=== PATIENT | female | born 1975 | race Caucasian/White ===

== ENCOUNTER 2019-11-08 23:02 | Emergency (ER) | payer SELFPAY ==
[~2019-11-08] VITALS: Ht 162.6 cm; Wt 81.6 kg
[2019-11-08 23:13] VITALS: BP 180/106
[2019-11-08] MEDS ORDERED: NACL 0.9% 1,000 ML IV ONE (23:20)
[2019-11-08 23:28] LABS: BASOPHILS # (AUTO) 0.1 K/uL (0.00-0.22); BASOPHILS % (AUTO) 0.4 % (0.0-2.0); EOSINOPHILS % (AUTO) 0.2 % (0.0-4.0); HEMATOCRIT 37.7 % (36-48); HEMOGLOBIN 12.4 g/dL (12.0-16.0); LYMPHOCYTES # (AUTO) 1.7 K/uL (2.5-16.5); MEAN CORPUSCULAR HEMOGLOBIN 28 pg (27-31); MEAN CORPUSCULAR HGB CONC 33 g/dL (33-37); MEAN CORPUSCULAR VOLUME 84.6 fL (80-94); MONOCYTES # (AUTO) 1.7 K/uL (0.8-1.0); MONOCYTES % (AUTO) 8.3 % (1.7-9.3); NEUTROPHILS # (AUTO) 16.6 K/uL (1.8-7.7); NEUTROPHILS % (AUTO) 82.8 % (42.2-75.2); RED BLOOD CELL COUNT(AUTO) 4.46 MIL/uL (4.20-5.40); RED CELL DISTRIBUTION WIDTH 14.2 % (11.6-13.7)
[2019-11-08 23:43] LABS: WHITE BLOOD COUNT (AUTO) 20.1 K/uL (4.8-10.8)
[2019-11-08 23:44] LABS: LYMPHOCYTES % (AUTO) 8.3 % (20.5-51.1); PLATELET COUNT (AUTO) 671 K/uL (140-450)
[2019-11-08 23:49] LABS: ALBUMIN 1.1 g/dL (3.4-5.0); ANION GAP 19.6 (8-16); ASPARTATE AMINOTRANSFERASE 13 U/L (15-37); CARBON DIOXIDE 19.3 mmol/L (21-32); CHLORIDE 98 mmol/L (98-107); CREATININE 1.9 mg/dL (0.6-1.3); GFR ARICAN-AMERICAN 37 mL/min (>90); GLUCOSE 382 mg/dL (74-106); SODIUM SERUM 134 mmol/L (136-145); TOTAL BILIRUBIN 0.3 mg/dL (0.0-1.0); UREA NITROGEN, BLOOD 22 mg/dL (7-18)
[2019-11-08 23:59] LABS: POTASSIUM 2.9 mmol/L (3.5-5.1)
[2019-11-09 00:25] LABS: APPEARANCE,URINE CLOUDY (CLEAR); BILIRUBIN,URINE NEGATIVE (NEGATIVE); BLOOD, URINE 3+ (NEGATIVE); COLOR,URINE YELLOW (YELLOW); LEUKOCYTE ESTERASE ,URINE NEGATIVE (NEGATIVE); NITRITE, URINE NEGATIVE (NEGATIVE); UGLUCOSE 3+ (NEGATIVE)
[2019-11-09] MEDS ORDERED: LORazepam 2 MG/ML VIAL IVP ONE (00:25)
[2019-11-09] MEDS ORDERED: LORazepam 2 MG/ML VIAL ONE (00:26)
[2019-11-09 00:48] LABS: RBC,URINE TOO NUMEROUS TO COUN /HPF (0-5); WBC,URINE TOO MANY TO COUNT /HPF (0-5)
[2019-11-09 00:49] LABS: BARBITURATE, URINE NEGATIVE ng/ml (NEG <=200); BENZODIAZEPINE, URINE NEGATIVE ng/mL (NEG <=200); CANNABINOID, URINE NEGATIVE ng/mL (NEG <=50); COCAINE, URINE NEGATIVE ng/mL (NEG <=300)
[2019-11-09 00:50] LABS: OPIATE, URINE POSITIVE ng/mL (NEG <=2000); PHENCYCLIDINE SCREEN,URINE NEGATIVE ng/mL (NEG <=25)
[2019-11-09] MEDS ORDERED: cefTRIAXone 1,000 MG VIAL ONE (01:08)
[2019-11-09 02:18] VITALS: BP 152/85
== END 2019-11-09 03:29 | disposition home or self-care (01) ==
LOC: MED 23:02
DX: N39.0 Urinary tract infection, site not specified (principal); R46.1 Bizarre personal appearance; R41.82 Altered mental status, unspecified; M54.30 Sciatica, unspecified side; Z79.899 Other long term (current) drug therapy
CPT/HCPCS: 36415; 70450; 71045; 74176; 80053; 80305; 81001; 84484; 84702; 85025; 87086; 96361; 96365; 96375; 99285; G0482; J0696; J2060; J7030; Q0092

== ENCOUNTER 2019-11-20 21:46 | Inpatient (IN) | payer BC, SELFPAY ==
[~2019-11-20] VITALS: Ht 162.6 cm; Wt 98.4 kg
[2019-11-20 22:25] VITALS: BP 64/48
--- NOTE | 2019-11-20 22:28 | NUR ---
PT TAKEN TO BED 7
--- NOTE | 2019-11-20 22:30 | NUR ---
Dr. Fonseca examining patient.
[2019-11-20] MEDS ORDERED: NACL 0.9% 1,000 ML IV ONE (22:35)
--- NOTE | 2019-11-20 22:45 | NUR ---
PT BIB FAMILY C/O YEAST INFECTION, STATING "ITS STILL THERE". PT IS LETHARGIC AND WEAK, TACHYPNIEC, SKIN MOIST, CLAMY, BP 74/59. PT SKEAKING IN ONE WORD SENTENCES. PT SEEN HERE 2 W[address]KS AGO FOR UTI [address] OLIVEIRA AT BEDSIDE
--- NOTE | 2019-11-20 22:52 | NUR ---
XRAY AT BEDSIDE.
[2019-11-20 22:59] LABS: BASOPHILS # (AUTO) 0.1 K/uL (0.00-0.22); BASOPHILS % (AUTO) 0.8 % (0.0-2.0); EOSINOPHILS # (AUTO) 0.1 K/uL (0-0.4); HEMATOCRIT 35.3 % (36-48); HEMOGLOBIN 11.6 g/dL (12.0-16.0); LYMPHOCYTES # (AUTO) 1.8 K/uL (2.5-16.5); LYMPHOCYTES % (AUTO) 11.7 % (20.5-51.1); MEAN CORPUSCULAR HEMOGLOBIN 27 pg (27-31); MEAN CORPUSCULAR HGB CONC 33 g/dL (33-37); MEAN CORPUSCULAR VOLUME 82.8 fL (80-94); MONOCYTES # (AUTO) 1.1 K/uL (0.8-1.0); MONOCYTES % (AUTO) 7.1 % (1.7-9.3); NEUTROPHILS # (AUTO) 12.2 K/uL (1.8-7.7); NEUTROPHILS % (AUTO) 79.4 % (42.2-75.2); PLATELET COUNT (AUTO) 689 K/uL (140-450); RED BLOOD CELL COUNT(AUTO) 4.26 MIL/uL (4.20-5.40); RED CELL DISTRIBUTION WIDTH 13.7 % (11.6-13.7)
--- NOTE | 2019-11-20 23:08 | NUR ---
LAB AT BEDSIDE.
[2019-11-20 23:16] LABS: APPEARANCE,URINE SL CLOUDY (CLEAR); BILIRUBIN,URINE NEGATIVE (NEGATIVE); BLOOD, URINE 1+ (NEGATIVE); COLOR,URINE YELLOW (YELLOW); LEUKOCYTE ESTERASE ,URINE NEGATIVE (NEGATIVE); NITRITE, URINE NEGATIVE (NEGATIVE); PH,URINE 7.5 (5.0-9.0); UGLUCOSE 3+ (NEGATIVE)
--- NOTE | 2019-11-20 23:16 | NUR ---
Dr. Carl examining patient.
--- NOTE | 2019-11-20 23:18 | NUR ---
DR ROBERTS AT BEDSIDE
[2019-11-20 23:21] LABS: SALICYLATE 3.3 mg/dL (2.8-20.0)
[2019-11-20 23:22] LABS: ANION GAP 17.8 (8-16); CREATININE 1.5 mg/dL (0.6-1.3); TOTAL BILIRUBIN 0.3 mg/dL (0.0-1.0)
[2019-11-20] MEDS ORDERED: KETOROLAC 30 MG/ML VIAL IVP ONE (23:30)
[2019-11-20 23:39] LABS: ACETAMINOPHEN < 0.5 ug/ml (10-30)
[2019-11-21 00:10] LABS: WHITE BLOOD COUNT (AUTO) 15.4 K/uL (4.8-10.8)
[2019-11-21 00:22] LABS: POTASSIUM 2.8 mmol/L (3.5-5.1)
[2019-11-21] MEDS ORDERED: KCL 20 MEQ/WATER INJ PREMIX 200 ML IV ONE (00:25)
[2019-11-21] MEDS ORDERED: NACL 0.9% 2,000 ML IV ONE (00:25)
[2019-11-21 01:11] LABS: RBC,URINE 0-5 /HPF (0-5); WBC,URINE 0-5 /HPF (0-5)
[2019-11-21 01:13] LABS: BARBITURATE, URINE NEGATIVE ng/ml (NEG <=200); BENZODIAZEPINE, URINE NEGATIVE ng/mL (NEG <=200); CANNABINOID, URINE NEGATIVE ng/mL (NEG <=50); COCAINE, URINE NEGATIVE ng/mL (NEG <=300); OPIATE, URINE NEGATIVE ng/mL (NEG <=2000); PHENCYCLIDINE SCREEN,URINE NEGATIVE ng/mL (NEG <=25)
[2019-11-21] MEDS ORDERED: cefTRIAXone 1,000 MG VIAL ONE (01:22)
--- NOTE | 2019-11-21 01:28 | NUR ---
PT RESTING IN BED AROUSABLE TO VOICE, AAOX4. PT STATES SHE FEELS BETTER, PT NOW SPEAKING IN FULL COMPLETE SENTENCES. PT REPORTS PAIN IN LT HIP AT 4/10. PT TOLERATING POTASSIUM, NS BOLUS, AND ROCEPHIN WELL AT THIS TIME.
--- NOTE | 2019-11-21 02:00 | NUR ---
PT NOT TOLERATING POTASSIUM WELL, C/O BURNING PAIN AROUND IV SITE. NO SIGNS OF INFILTRATION, IV IS PATENT, GOOD BLOOD RETURN, NO SWELLING OR DISCOLORATION TO IV SITE. POTASSIUM SLOWED DOWN TO 2OML/HR
--- NOTE | 2019-11-21 02:14 | NUR ---
providing relief and cover for primary MARY Howard.assumed pt care at this time.
[2019-11-21 02:22] LABS: D-DIMER 2470 ng/ml (0-400)
[2019-11-21 02:36] LABS: FIBRINOGEN 875 mg/dL (200-400)
[2019-11-21] MEDS ORDERED: MORPHINE SULFATE 2 MG/ML SYR IVP ONE (02:55)
--- NOTE | 2019-11-21 05:00 | NUR ---
PT SLEEPING IN BED, VISIBLE SYMMETRICAL RISE AND FALL OF CHEST, NO DISTRESS NOTED AT THIS TIME, VSS.
--- NOTE | 2019-11-21 07:00 | NUR ---
RECEIVED REPORT FROM ER NURSE. ADMITTED 44 Y/O FEMALE FROM HOME. WITH CHIEF COMPLAINT OF GENERALIZED WEAKNESS AND ADMITTING DIAGNOSIS OF SEPSIS, HYPOTENSION AND GENERALIZED WEAKNESS. A0X4, NO C/O PAIN, ABLE TO MAKE NEEDS KNOWN, NO SOB, O2SAT 98% ON RA. WITH RAC 18G RUNNING NS AT 100CC/HR AND LEFT HAND 18G ON SL. SKIN IS INTACT. ISOLATION PRECAUTION OBSERVED, SAFETY PRECAUTIONS IN PLACE. CALL LIGHT WITHIN REACH. WILL CONTINUE TO MONITOR
--- NOTE | 2019-11-21 07:00 | NUR ---
Patient will be admitted to care of [facility]. Admited to tele. Will go to room 113. Belongings list completed. Report to Kentrell HERNANDEZ.
[2019-11-21] MEDS: NACL 0.9% 1,000 ML IV SCH ×2 (07:09→17:09)
[2019-11-21] MEDS ORDERED: guaiFENesin DM 200/20 MG-10 ML 10 ML UDC PO PRN (07:10)
[2019-11-21] MEDS ORDERED: ONDANSETRON 4 MG/2 ML VIAL IM/IVP PRN (07:10)
[2019-11-21] MEDS ORDERED: DOCUSATE SODIUM 100 MG GELCAP PO PRN (07:10)
[2019-11-21] MEDS ORDERED: NACL 0.9% 1,500 ML IV SCH (07:10)
[2019-11-21] MEDS ORDERED: ZOLPIDEM 5 MG TAB PO PRN (07:10)
[2019-11-21] MEDS ORDERED: POTASSIUM CHLORIDE 40 MEQ, LIDOCAINE MPF 1% 25 MG in NACL 0.9% 250 ML IV PRN (07:15)
[2019-11-21 07:58] LABS: CHOL/HDL RATIO 5.7 (1-4.5); FREE T4 (FREE THYROXINE) 1.36 ng/dL (0.76-1.46); MAGNESIUM 1.8 mg/dL (1.8-2.4); PHOSPHORUS 2.5 mg/dL (2.5-4.9); THYROID STIMULATING HORMONE 2.19 uIU/mL (0.34-3.74)
[2019-11-21 08:19] LABS: ANION GAP 27.6 (8-16); CARBON DIOXIDE 11.6 mmol/L (21-32); CREATININE 1.5 mg/dL (0.6-1.3); POTASSIUM 3.2 mmol/L (3.5-5.1)
[2019-11-21] MEDS: POTASSIUM CHLORIDE 10 MEQ TABER PO PRN (09:00)
[2019-11-21] MEDS: PANTOPRAZOLE 40 MG TABEC PO SCH (09:07)
--- NOTE | 2019-11-21 09:30 | NUR ---
DUE MORNING MEDS GIVEN
--- NOTE | 2019-11-21 09:45 | NUR ---
ASSISTED PT TO RESTROOM. GEN WEAKNESS NOTED. COMMODE PLACED AT BEDSIDE
[2019-11-21 10:05] VITALS: BP 145/72
--- NOTE | 2019-11-21 10:30 | NUR ---
WITH C/O LOWER BACK PAIN 10/11. NORCO GIVEN ORDERED
[2019-11-21] MEDS: HYDROcodone/APAP 7.5/325 MG 1 TAB PO PRN ×3 (10:35→20:18)
--- NOTE | 2019-11-21 11:06 | NUR ---
PATIENT HAS BEEN SCREENED AND CATEGORIZED HIGH NUTRITION RISK. PATIENT WILL BE SEEN WITHIN 1-2 DAYS OF ADMISSION. 11/21/19-11/22/[address]
--- NOTE | 2019-11-21 13:29 | NUR ---
PT RESTING IN BED, PAIN SCALE 2/10. NO SOB, AFEBRILE
--- NOTE | 2019-11-21 13:45 | NUR ---
DC PLANNIN YRS OLD FEMALE PATIENT WAS ADMITTED FROM HOME WITH A DX OF SEPSIS OF UNKNOWN ETIOLOGY, GENERALIZED WEAKNESS AND HYPOTENSION. PATIENT HAS A HX OF DIABETES. CXR SHOWED NO ACUTE CARDIOPULMONARY DISEASE. COVID TEST, BLOOD AND URINE CULTURE PENDING. STARTED IVF, IV ABX ROCEPHIN , CONTINUE HOME MEDS . ORDERED CT ANGIO CHEST PENDING RESULT. DC PLAN TO GO HOME WHEN STABLE CM TO FOLLOW Addendum: 11/22/19 at 1159 by Pebbles Hernandez DC PLANNING: COVID TEST NEGATIVE , VQ SCAN LIMITED PERFUSION ONLY STUDY DEMONSTRATES NO SEGMENTAL DEFECTS. CONTINUE IV ABX ROCEPHIN AND CURRENT THERAPY. DC PLAN TO GO HOME WHEN STABLE CM TO FOLLOW
--- NOTE | 2019-11-21 15:30 | NUR ---
WITH C/O LOWER BACK PAIN 10/11. NORCO GIVEN ORDERED. WILL REASSESS IN 1 HOUR
[2019-11-21 16:00] VITALS: BP 143/91
[2019-11-21] MEDS ORDERED: diphenhydrAMINE 50 MG/ML VIAL IVP ONE (16:25)
--- NOTE | 2019-11-21 18:23 | NUR ---
PT RESTING IN BED. NO C/O PAIN, RESPIRATIONS ARE EVEN AND UNLABORED
[2019-11-21 20:00] VITALS: BP 134/87
--- NOTE | 2019-11-21 21:00 | NUR ---
VSS MED FOR BACK PAIN W/ NORCO 1 TAB PO W/ GOOD EFFECT NOTED/OBSERVED. SENT TO NUCLEAR MED FOR VQ SCAN. RETURNED BACK FROM NUCLEAR MED AT 2129. IV INTACT/PATENT/INFUSING ORDERED. ST ON TELE. WILL CONT TO MONITOR PT STATUS. SAFETY MAINTAINED. SR UP X2. CB IN REACH.
[2019-11-22 00:45] VITALS: BP_SYST 132; BP_SYST 152; BP_DIAS 85; BP_DIAS 94
[2019-11-22] MEDS: NACL 0.9% 1,000 ML IV SCH ×3 (03:13→23:09)
[2019-11-22 04:38] VITALS: BP 136/81
[2019-11-22 07:07] LABS: T4 (THYROXINE) 4.6 ug/dL (4.5-12.0)
[2019-11-22 07:25] LABS: BASOPHILS # (AUTO) 0.2 K/uL (0.00-0.22); BASOPHILS % (AUTO) 1.4 % (0.0-2.0); EOSINOPHILS # (AUTO) 0.1 K/uL (0-0.4); EOSINOPHILS % (AUTO) 1.1 % (0.0-4.0); HEMATOCRIT 32.2 % (36-48); HEMOGLOBIN 10.4 g/dL (12.0-16.0); LYMPHOCYTES # (AUTO) 1.5 K/uL (2.5-16.5); MEAN CORPUSCULAR HEMOGLOBIN 28 pg (27-31); MEAN CORPUSCULAR HGB CONC 32 g/dL (33-37); MONOCYTES # (AUTO) 0.9 K/uL (0.8-1.0); MONOCYTES % (AUTO) 7.2 % (1.7-9.3); NEUTROPHILS # (AUTO) 10.5 K/uL (1.8-7.7); NEUTROPHILS % (AUTO) 79.3 % (42.2-75.2); PLATELET COUNT (AUTO) 665 K/uL (140-450); RED BLOOD CELL COUNT(AUTO) 3.79 MIL/uL (4.20-5.40); RED CELL DISTRIBUTION WIDTH 14.2 % (11.6-13.7); WHITE BLOOD COUNT (AUTO) 13.2 K/uL (4.8-10.8)
[2019-11-22 08:00] VITALS: BP 136/91
[2019-11-22 08:03] LABS: ANION GAP 13.4 (8-16); CARBON DIOXIDE 21.8 mmol/L (21-32); CREATININE 1.3 mg/dL (0.6-1.3); POTASSIUM 3.2 mmol/L (3.5-5.1)
[2019-11-22] MEDS: PANTOPRAZOLE 40 MG TABEC PO SCH (09:07)
[2019-11-22] MEDS: POTASSIUM CHLORIDE 10 MEQ TABER PO PRN (10:13)
--- NOTE | 2019-11-22 10:41 | NUR ---
SMOKING PIPES CLEANER NOTE: SW WAS UNABLE TO MEET PATIENT AT BEDSIDE DUE TO MEDICAL CONDITION. SW CONTACTED PATIENT'S KASHMIR WINTERS [phone]. SW LEFT AND WILL FOLLOW UP.
[2019-11-22 12:00] VITALS: BP 143/90
[2019-11-22] MEDS: HYDROcodone/APAP 7.5/325 MG 1 TAB PO PRN (14:13)
--- NOTE | 2019-11-22 15:44 | NUR ---
temp went from 100.1 to 100.8. Cooling measures provided, will continue to follow up.
--- NOTE | 2019-11-22 15:53 | NUR ---
11/22/19 RD INITIAL ASSESSMENT COMPLETED PLEASE REFER TO NUTRITION ASSESSMENT UNDER CARE ACTIVITY FOR ESTIMATED NUTRITIONAL NEEDS. 1. CONTINUE CCHO 60GM DIET TOLERATED 2. ENCOURAGE PO INTAKE 3. RECOMMEND GLUCERNA BID 4. RD WILL FOLLOW UP WITH DIABETES NUTRITION EDUCATION 5. RD TO FOLLOW-UP 3-5 DAYS, MODERATE RISK AYLIN HART RD
[2019-11-22] MEDS: ACETAMINOPHEN 325 MG TAB PO PRN (16:17)
[2019-11-22] MEDS: INSULIN LISPRO SLIDING SCALE 100 UNITS/ML VIAL SUBQ PRN ×2 (17:35→20:41)
--- NOTE | 2019-11-22 19:13 | NUR ---
RECEIVED CARE FROM AM NURSE. PATIENT IS SLEEPING IN BED, IN STABLE CONDITION. NO COMPLAINT OF PAIN OR SIGNS OF DISTRESS. PATIENT IS S/P LAPAROTOMY WITH PROCREATED BOWEL REPAIR. DRESSINGS ARE DRY AND INTACT. PATIENT IS NO ROOM AIR. PATIENT IS ALERT BUT REFUSING TO OPEN EYES. SKIN AND WARM AND DRY. BILATERAL DRAINAGE TUBES NOTED. SAFETY PRECAUTIONS IN PLACE. CALL LIGHT WITHIN REACH. WILL CONTINUE TO MONITOR. Addendum: 11/23/19 at 0213 by Jose Francisco Suarez RN WRONG PATIENT. WRONG CHART.
--- NOTE | 2019-11-22 19:25 | NUR ---
RECEIVED REPORT FROM AM NURSE. PATIENT IS IN STABLE CONDITION. ON ROOM AIR. A/OX4, SKIN IS WARM, DRY, AND INTACT. PATIENT IS ABLE TO MAKE NEEDS KNOW. PLAN OF CARE DISCUSSED WITH PATIENT. ORIENTED PATIENT TO STAFF. SAFETY PRECAUTIONS IN PLACE, CALL LIGHT WITHIN REACH. WILL CONTINUE TO MONITOR.
[2019-11-22 20:00] VITALS: BP 121/75
[2019-11-22] MEDS: BLOOD GLUCOSE MONITORING 1 DEV DEV FS SCH (20:33)
--- NOTE | 2019-11-22 21:05 | NUR ---
CHECKED ON PATIENT AND PATIENT IS STABLE, SLEEPING IN BED. NO SIGNS OF DISTRESS NOTED. WILL CONTINUE TO MONITOR. Addendum: 11/23/19 at 0216 by Jose Francisco Suarez RN ADMINISTERED SCHEDULED MEDICATION. PATIENT TOLERATED WELL.
--- NOTE | 2019-11-22 23:16 | NUR ---
PATIENT IS SLEEPING. NO SIGNS OF DISTRESS NOTED.
[2019-11-23] VITALS: BP 146/89
--- NOTE | 2019-11-23 00:52 | NUR ---
ADMINISTERED SCHEDULED IV MEDS. PATIENT TOLERATED WELL. NO SIGNS OF DISTRESS NOTED. WILL CONTINUE TO MONITOR.
--- NOTE | 2019-11-23 03:30 | NUR ---
PATIENT IS SLEEPING. VISIBLE CHEST RISE NOTED. WILL CONTINUE TO MONITOR.
[2019-11-23 04:00] VITALS: BP 153/83
[2019-11-23] MEDS: ACETAMINOPHEN 325 MG TAB PO PRN ×2 (04:01→17:34)
--- NOTE | 2019-11-23 04:55 | NUR ---
PATIENT TEMP IS 101.7. MEDICATED ORDERED. WILL CONTINUE TO MONITOR.
[2019-11-23] MEDS: PIPERACILLIN/TAZOBACTAM 3.375 GM in DEXTROSE 5% 50 ML IV SCH ×5 (05:43→17:31)
[2019-11-23] MEDS: BLOOD GLUCOSE MONITORING 1 DEV DEV FS SCH ×4 (06:00→20:03)
[2019-11-23 07:07] LABS: BASOPHILS # (AUTO) 0.2 K/uL (0.00-0.22); EOSINOPHILS # (AUTO) 0.1 K/uL (0-0.4); EOSINOPHILS % (AUTO) 0.4 % (0.0-4.0); HEMATOCRIT 28.3 % (36-48); HEMOGLOBIN 9.2 g/dL (12.0-16.0); LYMPHOCYTES # (AUTO) 1.2 K/uL (2.5-16.5); LYMPHOCYTES % (AUTO) 6.5 % (20.5-51.1); MEAN CORPUSCULAR HEMOGLOBIN 28 pg (27-31); MEAN CORPUSCULAR HGB CONC 33 g/dL (33-37); MEAN CORPUSCULAR VOLUME 84.9 fL (80-94); MONOCYTES # (AUTO) 1.2 K/uL (0.8-1.0); MONOCYTES % (AUTO) 6.5 % (1.7-9.3); NEUTROPHILS # (AUTO) 16.1 K/uL (1.8-7.7); NEUTROPHILS % (AUTO) 85.6 % (42.2-75.2); PLATELET COUNT (AUTO) 554 K/uL (140-450); RED BLOOD CELL COUNT(AUTO) 3.33 MIL/uL (4.20-5.40); RED CELL DISTRIBUTION WIDTH 14.3 % (11.6-13.7); WHITE BLOOD COUNT (AUTO) 18.7 K/uL (4.8-10.8)
--- NOTE | 2019-11-23 07:36 | NUR ---
ENDORSED CARE TO AM NURSE. PATIENT IS IN STABLE CONDITION.
[2019-11-23 08:24] VITALS: BP 107/69
[2019-11-23] MEDS: PANTOPRAZOLE 40 MG TABEC PO SCH (09:20)
[2019-11-23] MEDS: NACL 0.9% 1,000 ML IV SCH ×2 (09:24→20:03)
--- NOTE | 2019-11-23 10:14 | NUR ---
AFEBRILE DURING MORNING ROUNDS, STILL RESTING, POOR APPETITE. IVF INFUSING, CALL LIGHT WITH REACH, BED EXIT ON, DISCUSSED PLAN OF CARE FOR TODAY, LAB RESULTS DISCUSSED WITH PATIENT, PATIENT VERBALIZED UNDERSTANDING.
[2019-11-23 10:34] LABS: ALBUMIN 0.7 g/dL (3.4-5.0); ANION GAP 16.4 (8-16); CARBON DIOXIDE 17.1 mmol/L (21-32); CREATININE 1.4 mg/dL (0.6-1.3); MAGNESIUM 1.4 mg/dL (1.8-2.4); PHOSPHORUS 2.2 mg/dL (2.5-4.9); POTASSIUM 3.5 mmol/L (3.5-5.1); TOTAL BILIRUBIN 0.2 mg/dL (0.0-1.0)
[2019-11-23] MEDS: INSULIN LISPRO SLIDING SCALE 100 UNITS/ML VIAL SUBQ PRN ×2 (12:00→17:18)
[2019-11-23 12:01] VITALS: BP 149/86
--- NOTE | 2019-11-23 13:48 | NUR ---
6TH GRADE TEACHER NOTE: Patient's Orientation Unable To Assess Information Provided By KASHMIR WINTERS - Comments SW WAS UNABLE TO MEET PATIENT DUE TO MEDICAL CONDITION. Auditor Medical Claims, Realtionship and Phone Number KASHMIR WINTERS [phone] Healthcare Power of Face Man No Does Patient Have a POLST No Identifying Problems No Social Work Triggers Is A Social Work Consult Needed No Mandate Report Filed No Explanation Of Identifying Problems PATIENT IS A 44-YEAR-OLD FEMALE ADMITTED FOR SEPSIS. PATIENT HAS PMHX OF DIABETES. Admitted From Home Pre-Admission Level Of Functioning Status Independent/Ambulatory Prior Resources/Services Used In Last 12 Months No Prior Resources Used Prior DME No Prior DME Used Living Situation House Lives With Spouse Patient Had Caregiver No Home Support No Caregiver Issues Financial Issues No Known Financial Issue Referral To The Financial Counselor Needed No Factors/Needs No D/C Needs Identified Pt/Rep Participated In Discharge Plan Yes Patient/Family Agress With Discharge Plan Yes Discharge Plan Comments TENTATIVE DISCHARGE PLAN IS FOR PATIENT TO RETURN HOME. DC Plan Status Initiated
--- NOTE | 2019-11-23 15:21 | NUR ---
patient resting, informed this senior writer " I got up by myself to BS". instructed patient next time to call for safety. encouraged to try sitting on edge of bed as tolerated.
[2019-11-23 16:17] VITALS: BP 128/85
--- NOTE | 2019-11-23 18:14 | NUR ---
afebrile this shift. morning labs. seen by psych and pulmo. will endorse to next shift for continuity of care.
--- NOTE | 2019-11-23 19:25 | NUR ---
RECEIVED REPORT FROM AM RN . PT IS STABLE IN NO DISTRESS. RESPIRATION EVEN AND UNLABORED. SAFETY MEASURES IN PLACE. WILL CONTINUE WITH POC.
[2019-11-23 20:00] VITALS: BP 116/68
--- NOTE | 2019-11-23 20:50 | NUR ---
AWAKE AND ORIENTED X 4 COMMUNICATES EFFECTIVELY. LAYING IN BED TALKING TO HER . LUNG SOUNDS CLEAR, ABDOMEN SOFT AND NONTENDER REPORTS LBM X 2-3 DAY AGO. V/S: 97.7, 100, 14, 116/68, 97% RA PAIN 3/10 GENERALIZED PAIN HOWEVER TOLERABLE AT THIS TIME REFUSING PAIN MANAGEMENT. PT USES BEDSIDE COMMODE EDUCATED ON CALLING FOR ASSISTANCE. TOLERATED HEPARIN SUB Q WITH NO COMPLICATIONS. CONTINUES TO RECEIVED NS AT 100ML/HR TO RIGHT HAND, IV IS PATENT AND INTACT. NO SIGNS OF INFECTION. ALL SAFETY MEASURES IN PLACE. WILL CONTINUE TO MONITOR.
--- NOTE | 2019-11-23 22:46 | NUR ---
RESTING IN BED WITH EYES CLOSED. RESPIRATION EVEN AND UNLABORED. WILL CONTINUE TO MONITOR. CALL LIGHT WITHIN REACH.
[2019-11-24] VITALS: BP 129/76
[2019-11-24] MEDS: PIPERACILLIN/TAZOBACTAM 3.375 GM in DEXTROSE 5% 50 ML IV SCH ×4 (00:38→17:46)
--- NOTE | 2019-11-24 00:54 | NUR ---
PT ASLEEP, SUPINE IN BED. RESPIRATION EVEN AND UNLABORED. TOLERATING ZOSYN IVPB WITH NO PROBLEMS. V/S: 97.5, 109, 14, 129/76, 97 % RA PAIN 0/10. WILL CONTINUE TO MONITOR.
[2019-11-24] MEDS: HYDROcodone/APAP 7.5/325 MG 1 TAB PO PRN (02:41)
--- NOTE | 2019-11-24 02:45 | NUR ---
PT WAS ASSISTED TO BEDSIDE COMMODE. PT VERBALIZED DISCOMFORT TO PELVIC AREA 11/11 AFTER AMBULATION. DESCRIBES PAIN PRESSURE LIKE FEELINGS PT ALSO EXPRESSED SHE HAS NOT GOTTEN HER MENSTRUAL CYCLE THIS MONTH, LAST CYCLE ON 10/06/2019. PT EDUCATED ON IMPORTANCE OF COMMUNICATING THAT WITH MD. PT EXPERIENCING MOMENTS OF EMOTION, CRYING WHEN DESCRIBING SITUATION OF LOSING HER JOB AND NOT KNOWING WHAT MEDICALLY WRONG WITH HER. CRYING DUE TO PAIN. PT WAS GIVEN NORCO 1 TAB FOR PAIN AT 0241. DISTRACTION AND RELAXATION WERE ENCOURAGED.
[2019-11-24 04:00] VITALS: BP 140/90
--- NOTE | 2019-11-24 04:48 | NUR ---
PT IS NO LONGER CRYING IN NO DISTRESS. CALL LIGHT WITHIN REACH. ALL NEEDS MET AT THIS TIME.
--- NOTE | 2019-11-24 06:05 | NUR ---
PT AWAKE IN NO DISTRESS. TOLERATED IVPB WITH NO PROBLEMS. DENIES ANY DISCOMFORT AT THIS TIME. SAFETY MEASURES IN PLACE.
[2019-11-24 06:10] LABS: BASOPHILS # (AUTO) 0.2 K/uL (0.00-0.22); EOSINOPHILS # (AUTO) 0.5 K/uL (0-0.4); EOSINOPHILS % (AUTO) 2.7 % (0.0-4.0); HEMATOCRIT 27.6 % (36-48); LYMPHOCYTES # (AUTO) 1.9 K/uL (2.5-16.5); LYMPHOCYTES % (AUTO) 10.7 % (20.5-51.1); MEAN CORPUSCULAR HEMOGLOBIN 28 pg (27-31); MEAN CORPUSCULAR HGB CONC 33 g/dL (33-37); MEAN CORPUSCULAR VOLUME 84.6 fL (80-94); MONOCYTES # (AUTO) 1.9 K/uL (0.8-1.0); MONOCYTES % (AUTO) 10.4 % (1.7-9.3); NEUTROPHILS # (AUTO) 13.5 K/uL (1.8-7.7); NEUTROPHILS % (AUTO) 75.2 % (42.2-75.2); PLATELET COUNT (AUTO) 603 K/uL (140-450); RED BLOOD CELL COUNT(AUTO) 3.26 MIL/uL (4.20-5.40); RED CELL DISTRIBUTION WIDTH 14.3 % (11.6-13.7); WHITE BLOOD COUNT (AUTO) 17.9 K/uL (4.8-10.8)
[2019-11-24 06:31] LABS: ANION GAP 14.7 (8-16); CARBON DIOXIDE 19.8 mmol/L (21-32); CREATININE 1.4 mg/dL (0.6-1.3); POTASSIUM 3.5 mmol/L (3.5-5.1)
--- NOTE | 2019-11-24 07:06 | NUR ---
PT ENDORSED TO AM RN, REPORT GIVEN. PT IS STABLE.
[2019-11-24 07:15] LABS: MAGNESIUM 1.6 mg/dL (1.8-2.4); PHOSPHORUS 2.8 mg/dL (2.5-4.9)
[2019-11-24] MEDS: BLOOD GLUCOSE MONITORING 1 DEV DEV FS SCH ×3 (07:30→16:30)
[2019-11-24 08:00] VITALS: BP 129/82
[2019-11-24] MEDS: PANTOPRAZOLE 40 MG TABEC PO SCH (08:00)
[2019-11-24] MEDS: NACL 0.9% 1,000 ML IV SCH ×2 (08:32→15:09)
--- NOTE | 2019-11-24 08:32 | NUR ---
independently washed herself, verbalized feeling better. started on nothing by mouth for ordered abd ultrasound. patient made aware and verbalized understanding.
[2019-11-24] MEDS ORDERED: MAG SULF 2000 MG/WATER PREMIX 50 ML IV SCH (09:00)
[2019-11-24] MEDS: INSULIN LISPRO SLIDING SCALE 100 UNITS/ML VIAL SUBQ PRN (11:45)
[2019-11-24 12:00] VITALS: BP 117/79
[2019-11-24] MEDS ORDERED: bisacodyL 10 MG SUPP RC SCH (15:00)
[2019-11-24 16:00] VITALS: BP 155/97
--- NOTE | 2019-11-24 16:26 | NUR ---
MULTIPLE CALLS PLACED TO CT, FINALLY SOMEONE ANSWERED, PER BAG LOADER MACHINE OPERATOR PATIENT HAS NO ORDER FOR CT. WILL INFORM PATIENT
--- NOTE | 2019-11-24 19:34 | NUR ---
PATIENT HAD A BOWEL MOVEMENT IN THE TOILET AND WAS NOT ABLE TO GET UP DESPITE PHYSICAL ASSISTANCE, HER LEGS BUCKLED AND SHE WAS ASSISTED TO FLOOR PER HER REQUEST. PATIENT KNEELED ON THE FLOOR AND THIS COLLISION REPAIRER WENT OUT OF THE ROOM GET MORE ASSISTANCE FROM STAFF WHILE THE IRRIGATOR STAYED WITH HER IN THE TOILET. PATIENT WAS LIFTED UP WITH TWO MALE STAFF AND TWO FEMALE STAFF AND SHE WAS ASSISTED BACK TO BED. PATIENT IS VERY EMOTIONAL AND ANXIOUS.
--- NOTE | 2019-11-24 20:00 | NUR ---
RECEIVED REPORT FROM MARA HERNANDEZ DAYSHIFT NURSE FOR POC. PT IN BED VISIBLY SHAKING AND PRAYING. PT VERY ANXIOUS , BUT SHE DECLINES ANY MEDICATION AT THIS TIME. HAD CALLED TO ASK FOR AN UPDATE ON PT CONDITION. PT SAID THAT SHE FEELS VERY UNCOMFORTABLE HERE, SHE SAID THAT SHE HAS BEEN HERE FOR 4 DAYS AND THAT SHE JUST WANTS TO GO HOME. AARON CHARGE NURSE SAID THAT THE IS ON THE PHONE WAITING OUTSIDE THE HOSPITAL. WILL GO AND SPEAK WITH AND PT REGARDING PLAN OF CARE HERE AT [facility] AND PT WISHES.
--- NOTE | 2019-11-24 20:45 | NUR ---
SPOKE WITH KASHMIR REGARDING WHAT TESTS, CONSULTS AND CARE HAS BEEN PROVIDED FOR HIS AND THE CURRENT PLAN OF ACTION. KASHMIR ACKNOWLEDGES THAT PT IS SICK AND KNOWS THAT PT WANTS TO GO HOME. HE SAID THAT PT HAD CALLED HIM SEVERAL TIMES TO GO AND PICK HER UP AND THAT SHE DOESN'T WANT TO STAY HERE. KASHMIR SAID HE KNOWS THAT SHE WILL NOT BE COMFORTABLE HERE AND THAT SHE WILL CONTINUE TO CALL HIM TO GET HER, AND THAT SHE DOESN'T WANT HER TO BE ANXIOUS ALL NIGHT. PT ALREADY TOLD AND STAFF THAT SHE REFUSES TO TAKE ANY MEDICATION AT ALL AND HE FEELS THAT IT IS BEST TO TAKE HER HOME WHERE SHE WILL BE COMFORTABLE. SPOKE WITH KASHMIR HAT SHE WILL NEED TO SIGN AN AMA PAPER. HE VERBALIZED UNDERSTANDING. SPOKE WITH MD HERNANDEZ WHOM IS EQUIPMENT MAINTENANCE TECH FOR MD VALVERDE. SHE REITERATED THAT SHE NEEDS TO UNDERSTAND THAT SHE NEEDS TO SEEK TREATMENT IF HER CONDITION WORSENS. PT VERBALIZED UNDERSTANDING, SIGNED AMA TIRE CORD WEAVER AND LEFT IN WHEEL CHAIR WITH BELONGINGS IN HAND. IV TAKEN OUT, TELE BOX RETURNED AND NAME BANDS CUT OFF.
== END 2019-11-24 20:45 | disposition left against medical advice (07) | DRG 871 ==
LOC: MED 21:46 → MTU 11-21 01:51
PROVIDERS: ADMIT Family Medicine; ATTEND Family Medicine
DX: A41.9 Sepsis, unspecified organism (principal); N17.0 Acute kidney failure with tubular necrosis; E43 Unspecified severe protein-calorie malnutrition; G93.41 Metabolic encephalopathy; J96.00 Acute respiratory failure, unspecified whether with hypoxia or hypercapnia; E87.6 Hypokalemia; E86.0 Dehydration; Z89.021 Acquired absence of right finger(s); E11.9 Type 2 diabetes mellitus without complications; F41.1 Generalized anxiety disorder; Z68.37 Body mass index [BMI] 37.0-37.9, adult; D47.3 Essential (hemorrhagic) thrombocythemia; Z53.29 Procedure and treatment not carried out because of patient's decision for other reasons; Z20.828 Contact with and (suspected) exposure to other viral communicable diseases
CPT/HCPCS: 36415; 36600; 71045; 76700; 78582; 80048; 80053; 80305; 81001; 82150; 82550; 82553; 82728; 82803; 82948; 83036; 83605; 83615; 83690; 83735; 83880; 84100; 84436; 84439; 84443; 84479; 84484; 84702; 85025; 85379; 85384; 85610; 85651; 85730; 86140; 87040; 87081; 87086; 87804; 93005; 96365; 96372; 96375; 99291; G0480; G0482; J0696; J1644; J1885; J2001; J2270; J2405; J2543; J3475; J3480; J7030; J7060; Q0092; U0003-CS

== ENCOUNTER 2019-12-29 00:49 | Emergency (ER) | payer BC, OTHER, SELFPAY ==
[~2019-12-29] VITALS: Ht 162.6 cm; Wt 86.6 kg
[2019-12-29 01:04] VITALS: BP 149/100
[2019-12-29 01:47] LABS: BASOPHILS # (AUTO) 0.1 K/uL (0.00-0.22); EOSINOPHILS # (AUTO) 0.2 K/uL (0-0.4); EOSINOPHILS % (AUTO) 2.5 % (0.0-4.0); HEMATOCRIT 36.6 % (36-48); HEMOGLOBIN 11.9 g/dL (12.0-16.0); LYMPHOCYTES # (AUTO) 2.1 K/uL (2.5-16.5); LYMPHOCYTES % (AUTO) 20.7 % (20.5-51.1); MEAN CORPUSCULAR HEMOGLOBIN 28 pg (27-31); MEAN CORPUSCULAR HGB CONC 32 g/dL (33-37); MEAN CORPUSCULAR VOLUME 87.6 fL (80-94); MONOCYTES # (AUTO) 1.1 K/uL (0.8-1.0); MONOCYTES % (AUTO) 10.6 % (1.7-9.3); NEUTROPHILS # (AUTO) 6.5 K/uL (1.8-7.7); NEUTROPHILS % (AUTO) 65.2 % (42.2-75.2); PLATELET COUNT (AUTO) 437 K/uL (140-450); RED BLOOD CELL COUNT(AUTO) 4.18 MIL/uL (4.20-5.40); RED CELL DISTRIBUTION WIDTH 17.5 % (11.6-13.7)
[2019-12-29 02:05] LABS: ALBUMIN 2.5 g/dL (3.4-5.0); ANION GAP 16.3 (8-16); ASPARTATE AMINOTRANSFERASE 25 U/L (15-37); CARBON DIOXIDE 20.9 mmol/L (21-32); CHLORIDE 104 mmol/L (98-107); CREATININE 1.6 mg/dL (0.6-1.3); GFR ARICAN-AMERICAN 45 mL/min (>90); GLUCOSE 160 mg/dL (74-106); POTASSIUM 3.2 mmol/L (3.5-5.1); SODIUM SERUM 138 mmol/L (136-145); TOTAL BILIRUBIN 0.6 mg/dL (0.0-1.0); UREA NITROGEN, BLOOD 16 mg/dL (7-18)
[2019-12-29 02:56] LABS: APPEARANCE,URINE CLEAR (CLEAR); BILIRUBIN,URINE NEGATIVE (NEGATIVE); BLOOD, URINE 3+ (NEGATIVE); COLOR,URINE YELLOW (YELLOW); LEUKOCYTE ESTERASE ,URINE NEGATIVE (NEGATIVE); NITRITE, URINE NEGATIVE (NEGATIVE); PH,URINE 8.5 (5.0-9.0); UGLUCOSE 1+ (NEGATIVE)
[2019-12-29 03:19] LABS: BARBITURATE, URINE NEGATIVE ng/ml (NEG <=200); BENZODIAZEPINE, URINE NEGATIVE ng/mL (NEG <=200); CANNABINOID, URINE NEGATIVE ng/mL (NEG <=50); COCAINE, URINE NEGATIVE ng/mL (NEG <=300); OPIATE, URINE NEGATIVE ng/mL (NEG <=2000); PHENCYCLIDINE SCREEN,URINE NEGATIVE ng/mL (NEG <=25)
[2019-12-29 03:22] LABS: RBC,URINE >100 /HPF (0-5); WBC,URINE 0-5 /HPF (0-5)
[2019-12-29 04:08] VITALS: BP 161/100
== END 2019-12-29 04:08 | disposition home or self-care (01) ==
LOC: MED 00:49
DX: D25.9 Leiomyoma of uterus, unspecified (principal); N93.9 Abnormal uterine and vaginal bleeding, unspecified; E11.9 Type 2 diabetes mellitus without complications; I10 Essential (primary) hypertension
CPT/HCPCS: 36415; 76856; 80053; 80305; 81001; 84702; 85025; 93976; 99284; G0482; Q0092

== ENCOUNTER 2020-03-09 23:41 | Emergency (ER) | payer SELFPAY ==
[~2020-03-09] VITALS: Ht 162.6 cm; Wt 90.7 kg
[2020-03-09 23:55] VITALS: BP 161/106
--- NOTE | 2020-03-10 00:13 | NUR ---
PATIENT BIB [employer]. PATIENT EXAMINED BY DR. MITCHELL. PATIENT MEDICALLY CLEARED AND RELEASED IN CUSTODY IN STABLE CONDITION. ORIGINAL PRE-BOOK FORM GIVEN TO OFFICER ZHAO, #[phone].
== END 2020-03-10 00:13 ==
LOC: MED 23:41
DX: Z04.3 Encounter for examination and observation following other accident (principal); Z02.89 Encounter for other administrative examinations; E11.9 Type 2 diabetes mellitus without complications; I10 Essential (primary) hypertension; F17.200 Nicotine dependence, unspecified, uncomplicated; Z98.890 Other specified postprocedural states; Y04.0XXA Assault by unarmed brawl or fight, initial encounter; Y93.89 Activity, other specified; Y92.89 Other specified places as the place of occurrence of the external cause; Y99.8 Other external cause status
CPT/HCPCS: 82948; 99283

== ENCOUNTER 2020-03-18 16:33 | Emergency (ER) | payer MEDICAID, OTHER ==
[~2020-03-18] VITALS: Ht 175.3 cm; Wt 81.6 kg
[2020-03-18 19:36] VITALS: BP 134/82
[2020-03-18] MEDS ORDERED: HALOPERIDOL IM 5 MG/ML VIAL IM ONE (19:40)
[2020-03-18] MEDS ORDERED: LORazepam 2 MG/ML VIAL IM ONE (19:40)
[2020-03-18 20:25] LABS: BASOPHILS # (AUTO) 0.1 K/uL (0.00-0.22); BASOPHILS % (AUTO) 1.1 % (0.0-2.0); EOSINOPHILS # (AUTO) 0.2 K/uL (0-0.4); EOSINOPHILS % (AUTO) 2.6 % (0.0-4.0); HEMATOCRIT 35.7 % (36-48); HEMOGLOBIN 11.4 g/dL (12.0-16.0); LYMPHOCYTES # (AUTO) 1.9 K/uL (2.5-16.5); MEAN CORPUSCULAR HEMOGLOBIN 28 pg (27-31); MEAN CORPUSCULAR HGB CONC 32 g/dL (33-37); MEAN CORPUSCULAR VOLUME 86.3 fL (80-94); MONOCYTES # (AUTO) 0.9 K/uL (0.8-1.0); MONOCYTES % (AUTO) 10.2 % (1.7-9.3); NEUTROPHILS % (AUTO) 65.1 % (42.2-75.2); PLATELET COUNT (AUTO) 461 K/uL (140-450); RED BLOOD CELL COUNT(AUTO) 4.14 MIL/uL (4.20-5.40); RED CELL DISTRIBUTION WIDTH 13.6 % (11.6-13.7); WHITE BLOOD COUNT (AUTO) 9.2 K/uL (4.8-10.8)
[2020-03-18 20:47] LABS: ACETAMINOPHEN < 0.5 ug/ml (10-30); ALBUMIN 2.3 g/dL (3.4-5.0); ANION GAP 14.3 (8-16); ASPARTATE AMINOTRANSFERASE 26 U/L (15-37); CARBON DIOXIDE 23.6 mmol/L (21-32); CHLORIDE 109 mmol/L (98-107); CREATININE 1.7 mg/dL (0.6-1.3); GFR ARICAN-AMERICAN 42 mL/min (>90); GLUCOSE 92 mg/dL (74-106); POTASSIUM 4.9 mmol/L (3.5-5.1); SALICYLATE < 2.8 mg/dL (2.8-20.0); SODIUM SERUM 142 mmol/L (136-145); TOTAL BILIRUBIN 0.3 mg/dL (0.0-1.0); UREA NITROGEN, BLOOD 34 mg/dL (7-18)
[2020-03-18 20:51] LABS: BARBITURATE, URINE NEGATIVE ng/ml (NEG <=200); BENZODIAZEPINE, URINE NEGATIVE ng/mL (NEG <=200); CANNABINOID, URINE NEGATIVE ng/mL (NEG <=50); COCAINE, URINE NEGATIVE ng/mL (NEG <=300); OPIATE, URINE NEGATIVE ng/mL (NEG <=2000); PHENCYCLIDINE SCREEN,URINE NEGATIVE ng/mL (NEG <=25)
[2020-03-19] MEDS: OLANZapine 5 MG TAB PO SCH ×3 (09:27→21:00)
[2020-03-19] MEDS ORDERED: HALOPERIDOL IM 5 MG/ML VIAL IM ONE (18:35)
[2020-03-19] MEDS ORDERED: LORazepam 2 MG/ML VIAL IM ONE (18:35)
[2020-03-19] MEDS ORDERED: diphenhydrAMINE 50 MG/ML VIAL IM ONE (18:35)
[2020-03-20] MEDS: OLANZapine 5 MG TAB PO SCH ×3 (10:24→21:12)
[2020-03-20] MEDS ORDERED: ACETAMINOPHEN EXTRA STRENGTH 500 MG TAB PO ONE (15:40)
[2020-03-20] MEDS ORDERED: ACETAMINOPHEN EXTRA STRENGTH 500 MG TAB ONE (16:52)
[2020-03-21] MEDS: OLANZapine 5 MG TAB PO SCH (08:56)
[2020-03-21] MEDS ORDERED: ONDANSETRON 4 MG ODT PO ONE (17:50)
[2020-03-21 18:47] VITALS: BP 156/95
== END 2020-03-21 21:30 | disposition home or self-care (01) ==
LOC: MED 16:33
DX: F23 Brief psychotic disorder (principal); E11.9 Type 2 diabetes mellitus without complications; I10 Essential (primary) hypertension
CPT/HCPCS: 36415; 80053; 80305; 84703; 85025; 96372; 99285; G0480; G0482; J1200; J1630; J2060; Q0162; U0003

== ENCOUNTER 2020-03-26 02:00 | Emergency (ER) | payer MEDICAID ==
[~2020-03-26] VITALS: Ht 162.6 cm; Wt 90.7 kg
[2020-03-26 02:40] VITALS: BP 154/108
--- NOTE | 2020-03-26 02:40 | NUR ---
TO TENT VIA W/V
[2020-03-26 02:49] VITALS: BP 154/108
--- NOTE | 2020-03-26 02:50 | NUR ---
SEEN AND EXAMINED BY ENRICO WITH ORDERS AND CARRIED OUT
--- NOTE | 2020-03-26 03:04 | NUR ---
PATIENT ELOPED FROM FACILITY. DISCHARGE INSTRUCTIONS NOT GIVEN TO PATIENT. DR. CINTRON NOTIFIED.
== END 2020-03-26 03:04 | disposition left against medical advice (07) ==
LOC: MED 02:00
DX: R11.10 Vomiting, unspecified (principal); R06.02 Shortness of breath; E11.9 Type 2 diabetes mellitus without complications; I10 Essential (primary) hypertension
CPT/HCPCS: 99281